=== PATIENT | female | born 1985 | race Hispanic/Latino ===

== ENCOUNTER 2016-10-06 06:55 | Emergency (ER) | payer MEDICAID ==
[~2016-10-06] VITALS: Ht 147.3 cm; Wt 58.6 kg
[~2016-10-06 06:55] MED LIST: IBUP-1827 PO; OXYC-284 PO
[2016-10-06 06:57] VITALS: BP 112/77; PULSE 67; RESP 18; O2SAT 95
--- NOTE | 2016-10-06 07:10 | ED.REPORT ---
HPI-NVD Date of Service Oct 06, 2016 ED Provider: Ariana Ferrari MD Pt is a 31 y.o female who presents to the ED c/o vomiting onset 2 days ago. Pt reports associated nausea, dizziness, weakness, abdominal pain, diarrhea, cough and nasal congestion. She denies fever. Son reports that his sibling was sick with a cough 3 days ago, but her symptoms were not the same. Nursing Notes Stated Complaint: VOMITING,WEAK MUSCLES,COUGHING Chief Complaint: Female Abdominal Pain Nursing Notes Reviewed: Yes Allergies: Coded Allergies: No Known Allergies (Unverified , 11/14/14) Scheduled PRN Ibuprofen (Ibuprofen) 600 Mg Tablet 600 MG PO TID PRN PRN For Pain Ondansetron (Zofran) 4 Mg Tablet 4 MG PO Q4H PRN PRN For Nausea Oxycodone HCl/Acetaminophen 5-325 (Percocet 5-325) 1 Each Tablet 1 EACH PO Q4 PRN PRN For Pain General Time Seen by MD: 07:10 Chief Complaint Vomiting Hx Obtained From: Patient Arrived By: Walk-in Onset Occurred: 2 days ago Symptom Duration: Since onset Location: : Diffuse Quality: Painful Severity: Current: Mild Past Medical History Past Medical History Past Surgical History None reported Smoking History Never Smoker Social History Alcohol Use: Denies alcohol use Drug Use: Denies drug use Other Social History: Lives with children Ambulatory Status Independent Review of Systems Constitutional: Reports: Weakness - generalized, Denies: Fever Ears / Nose / Throat: Reports: Nasal congestion GI: Reports: Abdominal pain, Diarrhea, Nausea, Vomiting Neurologic: Reports: Dizziness Complete sys rev & neg: except as marked. Respiratory: Reports: Non-productive cough Physical Exam Initial Vital Signs Vital Signs (First) Date Time Temp Pulse Resp B/P Pulse Ox O2 Delivery O2 Flow Rate FiO2 10/06/16 06:57 36.4 67 18 112/77 95 Initial VS: Reviewed Head / Eyes: Atraumatic, Normocephalic Extremities: Vascular intact, Neuro intact Neurologic: Alert, Oriented, Nonfocal Psychiatric: Mood/affect normal, Behavior normal, Normal thought content General/Constitutional: Awake, Alert, No acute distress, Well appearing, Well developed, Well nourished, Not toxic appearing Tenderness/Guarding/Rebound: Positive: Tender diffuse (Mild), Tender epigastric Abdominal tenderness worse in epigastrium area Respiratory / Chest: Atraumatic, Breath sounds NL, Breath sounds = bilat, No respiratory distress, No wheezing Cardiovascular: Heart rate NL, Regular rhythm, Heart sounds NL, No murmurs, Peripheral circulation NL Skin: Atraumatic, Color NL, Warm, Dry, Intact Well perfused Interpretation & Diagnostics Lab Results Interpretation Result Diagram: 10/06/16 0753 10/06/16 0753 Test 10/06/16 07:53 White Blood Count 5.3th/mm3 (3.8-10.1) Red Blood Count 4.39mil/mm3 (3.90-5.20) Hemoglobin 14.4g/dL (12.0-15.6) Hematocrit 42.0% (35.0-46.0) Mean Corpuscular Volume 95.7fL (81-100) Mean Corpuscular Hemoglobin 32.8pg (27.0-35.0) Mean Corpuscular Hemoglobin Concent 34.3% (32.0-37.0) Red Cell Distribution Width 12.9% (12.3-15.4) Platelet Count 225bil/L (150-400) Neutrophils (%) (Auto) 48.4% (40-74) Lymphocytes (%) (Auto) 39.8% (14-46) Monocytes (%) (Auto) 6.6% (4-12) Eosinophils (%) (Auto) 4.2% (0-5) Basophils (%) (Auto) 0.8% (0-3) Sodium Level 141mEq/L (134-144) Potassium Level 3.6mEq/L (3.5-5.2) Chloride Level 105mEq/L (97-108) Carbon Dioxide Level 20mmol/L (18-29) Blood Urea Nitrogen 10mg/dL (6-20) Creatinine 0.42mg/dL (0.57-1.00) Estimat Glomerular Filtration Rate 249mL/min (>59) Glucose Level 103mg/dL (60-99) Calcium Level 9.1mg/dL (8.5-10.1) Magnesium Level 2.0mg/dL (1.6-2.6) Total Bilirubin 0.2mg/dL (0.0-1.2) Aspartate Amino Transf (AST/SGOT) 19U/L (0-50) Alanine Aminotransferase (ALT/SGPT) 24U/L (0-32) Alkaline Phosphatase 71U/L (25-150) Total Protein 7.0g/dL (6.4-8.4) Albumin 4.1g/dL (3.4-5.0) Lipase 28U/L (13-60) Re-Eval/Medical Decision Med Decision/Clinical Course Presents with vomiting and mild signs of dehydration. No significant fevers no significant abdominal pain. On reexam better after a liter of fluid nausea medications abdominal exam remains unimpressive and nonsurgical at this point. Questions were answered she is discharged home with Zofran as needed Source of Hx: Old records Re-Evaluation/Progress : Time of Eval: 09:39 Re-Evaluation/Progress Note: Pt rechecked. Pt is feeling moderately improved but is now c/o dizziness. Discussed PO challenge and plan for discharge. Counseled Regarding: Diagnosis, Lab results, Need for follow-up, When/why to return to ED Discharge & Departure Impression: Primary Impression: Vomiting Disposition: Home Discharge Condition All VS Reviewed: Yes Condition: Improved Patient Instructions: Acute Nausea and Vomiting (ED) Additional Instructions: Thank you for entrusting us with your care today. You were seen in the ED for vomiting. Drink plenty of fluids to keep from becoming dehydrated. I will prescribe you Zofran to take as directed for nausea. Return if your vomiting worsens, you have increasing abdominal pain, develop a fever, or any new or worsening symptoms. Referrals: Estrellita Knapp (PCP) Chi Diggs MD (Family) [facility] Wendy Attestation Portions of this note were transcribed by Elva Yuen. I, Dr. Ferrari personally performed the history, physical exam and medical decision-making; I reviewed and confirmed the accuracy of the information in the transcribed note. Signed by: Wendy Kumar, 10/06/16 and 9098 copies to: Chi Diggs MD; Estrellita Knapp; [facility] Ariana Ferrari MD Oct 06, 2016 07:10 ELVA YUEN Oct 06, 2016 07:18
[2016-10-06] MEDS ORDERED: 0.9% Sodium Chloride 1,000 ML IV ONE (07:16)
[2016-10-06] MEDS ORDERED: Ondansetron 2 mg/mL 2 mL Inj IVPUSH ONE (07:20)
[2016-10-06] MEDS ORDERED: Pantoprazole 4 mg/mL 10 mL Inj IVPUSH ONE (07:20)
[2016-10-06 08:08] LABS: BASOPHILS % (AUTO) 0.8 % (0-3); EOSINOPHILS % (AUTO) 4.2 % (0-5); MONOCYTES % (AUTO) 6.6 % (4-12); Mean Corpuscular Hemoglobin 32.8 pg (27.0-35.0); Mean Corpuscular Volume 95.7 fL (81-100); NEUTROPHILS % (AUTO) 48.4 % (40-74); Platelet Count 225 bil/L (150-400)
[2016-10-06] MEDS ORDERED: ONDA4TAB6 PO (09:45)
[2016-10-06 09:56] VITALS: BP 106/65; RESP 16; O2SAT 98
== END 2016-10-06 09:57 | disposition home or self-care (01) ==
LOC: SED 06:55
DX: R11.10 Vomiting, unspecified (principal); R42 Dizziness and giddiness; R53.1 Weakness; R10.9 Unspecified abdominal pain; R05 Cough; R09.81 Nasal congestion
CPT/HCPCS: 36415; 80053; 81025; 83690; 83735; 85025; 96374; 96375; 99284; J2405; J7030